=== PATIENT | male | born 1975 | race Caucasian/White ===

== ENCOUNTER → 2017-06-21 | Outpatient (CLI) | payer OTHER ==
[~2017-06-21] VITALS: Ht 170.2 cm; Wt 87.5 kg
[~2017-06-21] MED LIST: MELA3TAB2 PO; NORMAL SALINE IV ONE; SINCALIDE IV ONE; VALA500T5 PO
--- NOTE | 2017-06-21 09:36 | RAD ---
Ultrasound of the abdomen 06/21/2017 Clinical history: Nausea and vomiting. Technique: A real-time ultrasound examination of the abdomen was performed. Multiple images were obtained. Findings: The gallbladder is well-distended. No gallstones are visualized. The gallbladder wall thickness is within normal limits. No pericholecystic fluid is seen. The common bile duct measures 4 mm in diameter which is within normal limits. The liver is normal in size measuring 15.2 cm in length. No focal abnormality of the liver is seen. The spleen, visualized portions of the pancreas and kidneys are within normal limits. The abdominal aorta tapers normally. The inferior vena cava is within normal limits. No free fluid is seen. Impression: Negative study.
--- NOTE | 2017-06-21 14:52 | RAD ---
Indication: Nausea and vomiting. The patient was administered 5.5 mCi of technetium 99m Choletec and imaging over the abdomen was performed. Next, the patient was administered 1.75 mcg of Kinevac and a gallbladder ejection fraction was calculated. There is homogeneous uptake of activity throughout the liver. There is prompt excretion of activity into the common duct with passage into the small bowel. There is also activity accumulating in the gallbladder. Gallbladder ejection fraction is normal at 72%. Impression: Normal HIDA scan and gallbladder ejection fraction.
== END | disposition home or self-care (01) ==
LOC: US 08:44
PROVIDERS: ATTEND Internal Medicine Gastroenterology
DX: R11.2 Nausea with vomiting, unspecified (principal)
CPT/HCPCS: 76700; 78226; 96374; 96375; A9537; J2805

== ENCOUNTER → 2017-06-27 | Day surgery (SDC) | payer OTHER ==
[~2017-06-27] MED LIST changes: +LIDOCAINE 1% PF 2 ML VIAL. ID; -MELA3TAB2 PO; +MIDAZOLAM HCL/PF 2 MG/2 ML VIAL. IV; -NORMAL SALINE IV ONE; +PROPOFOL 20 ML IV; -SINCALIDE IV ONE; -VALA500T5 PO; +fentaNYL PF VIAL 100 MCG/2 ML VIAL IV
[2017-06-27] MEDS: IV RINGERS,LACTATED 1000ML 1,000 ML IV (08:27)
== END | disposition home or self-care (01) ==
LOC: ENDOS 09:44
DX: K21.0 Gastro-esophageal reflux disease with esophagitis (principal); K31.89 Other diseases of stomach and duodenum; Z72.89 Other problems related to lifestyle; F17.210 Nicotine dependence, cigarettes, uncomplicated; Z98.52 Vasectomy status; Z79.899 Other long term (current) drug therapy
CPT/HCPCS: 43239; 88305; 88342; J2704